=== PATIENT | male | born 1975 | race African-American/Black ===

== ENCOUNTER → 2018-05-30 | Outpatient (CLI) | payer OTHER ==
[~2018-05-30] MED LIST: CETI10TA22 PO; GABA600T7 PO; MULT1TAB52 PO; NAPR-683 PO
--- NOTE | 2018-05-31 01:56 | PAIN ---
DATE OF SERVICE: 05/30/2018 INITIAL CONSULTATION IN PAIN CLINIC CHIEF COMPLAINT: Low back and right lower extremity pain. HISTORY OF PRESENT ILLNESS: The patient is a 42-year-old male who presents with history of pain in the low back and right lower extremity for about 3 months with some significant difficulty with walking over the past 1 month. The patient reports pain in the low back and the right lower extremity, posterior gluteus, posterior thigh and then into the first and second toes with numbness on the right foot. The patient reports this came up about 3 months ago, not a result of any specific injury or action he is aware of, just came up slowly. The patient had pain and stiffness in the low back as well as the right leg and foot. The patient is taking gabapentin as well as naproxen, which does decrease the pain by about 40%. The patient reports he has had epidural injections in the past, physical therapy, chiropractic treatment, is doing exercise currently, but without significant reduction in the pain overall. The patient reports it awakens him from sleep at least twice a night, does not affect his bowel or bladder control, but does affect his ability to walk. He is walking with a slightly widened gait and is breaking his back, when he walks keeping his knees bent more than normal. The patient reports the pain is constant, sharp, shooting, radiating with numbness in the foot, burning in the right leg is described. The patient reports a disability rate from 0-10, 10 being the worst, is 9 with family home responsibilities, recreation and sexual behavior and 7 with social activity, occupational behavior, self-care and life support activities; all at 7/10. The patient did have MRI scan of the lumbar spine dated 05/25/2018 showing degenerative disk changes of L2, previous microdiskectomy at L5-S1, slightly asymmetric soft tissue prominence seen in the right paramedian location at L5-S1, he has actually very small broad-based disk extrusion, post-surgical changes accounting for some and not excluded, mild inferior neural foraminal narrowing seen greater on the right. The L4-L5 shows mild facet and ligamentum flavum hypertrophy with minimal bulging asymmetric to the left. The patient's past medical history is significant for only previous right hip surgery and low back surgery in 2016 with lumbar L5-S1 diskectomy. Otherwise, the patient has been in good health. CURRENT MEDICATIONS: Include naproxen, gabapentin, multivitamins and Zyrtec. ALLERGIES: The patient is allergic to FISH. No medicines he is alert and aware of. FAMILY HISTORY: Significant for no major medical problems or conditions he is aware of. SOCIAL HISTORY: The patient does not smoke, drinks alcohol about 2 drinks once or twice a week on average. Does not use any illegal, illicit or recreational drugs. He is single. Lives locally in [place], [place] and is active . REVIEW OF SYSTEMS: The patient's review of systems is positive for those items mentioned in history of present illness. All systems reviewed and otherwise negative. It is complete, full and well documented on the patient's chart. PHYSICAL EXAMINATION: VITAL SIGNS: Today, the patient's blood pressure is 139/82, pulse is 72, respirations 18, temperature 98.1 degrees Fahrenheit, height is 6 feet 2 inches, weight 243 pounds. GENERAL: The patient is awake, alert, oriented, appropriate, very pleasant demeanor. HEENT: Head shows normocephalic, atraumatic. Extraocular movements are intact and symmetrical. Oral cavity: Mucous membranes moist and pink. Dentition is intact. NECK: Shows anterior throat supple without palpable lymphadenopathy noted. Swallow reflex symmetrical. CHEST: Shows normal with inspection. Breath sounds are clear to auscultation bilaterally. HEART: Shows S1 and S2 clear. No murmurs auscultated. ABDOMEN: Soft, nontender and nondistended. No palpable organomegaly is noted. No rebound or guarding demonstrated. BACK: Shows spine grossly in the midline. Normal appearing thoracic kyphosis and lumbar lordotic curvature as well. Small well-healed surgical scars noted in the lumbar distribution in the midline. Lumbar paraspinous muscle shows symmetrical on inspection, no atrophy or hypertrophy, no asymmetry. With palpation, there is some moderate tenderness in the middle and lower distribution of paraspinous muscles bilaterally, but only diffusely without radiation. No trigger points, no asymmetry, no tenderness over the sacrum or sacroiliac regions over the spinous processes. The patient has good rotational motion of lumbar spine, both laterally as well as extension and flexion greater than 10 degrees right and left in extension as well as 45 degrees forward flexion without significant pain reported. EXTREMITIES: Lower extremities show deep tendon reflexes at 2+, in the patellar 1+ and tendo-calcaneus tendons are equal. Motor exam is strong with approximately 4 on a scale of 5 on the right with dorsiflexion and extension, 5/5 on the left, quadriceps and hamstring flexion 5/5 and equal bilaterally. Peripheral pulses are 1+ posterior tibial and dorsalis pedis pulses. No peripheral edema is noted. Lower extremities are warm and dry to touch, equal in color and appearance. Straight leg raise noted to be positive on the right at about 40 degrees, decreased with knee flexion, left side is negative. Gaenslen's and Talha's maneuvers are negative bilaterally. The patient is able to stand, stand on his toes without difficulty or loss of balance and has a slight widened gait though and does favor his low back with walking. He keeps his knees bent with his back is more straight when he is ambulating. SKIN: Shows warm and dry, good turgor. No edema. No sores, rashes or bruising throughout. IMPRESSION: 1. This is a 42-year-old male with a history of low back surgery in 2016, now pain returning in the low back, right lower extremity in radicular fashion for about 3 months without any recent injury or accident. 2. MRI scan of lumbar spine as noted. PLAN: Options were discussed with the patient including conservative medical management, physical therapy, interventional techniques. He would like to pursue interventional techniques and he is doing some therapy, stretching and strengthening exercises on his own, heat and massage therapy as well. We discussed a lumbar epidural steroid injection using description as well as anatomical models to describe the procedure. The patient will wait for preauthorization with insurance provider. Once this is obtained, we will have him return for lumbar epidural steroid injection at that time with L5-S1 radicular pain on the right side. The patient in the meantime will continue with stretching and strengthening exercises and to follow up as scheduled. ROSANNE DAVIES MD DR: RAGHU/leslee JOB#: [id number] / [id number]
== END | disposition home or self-care (01) ==
LOC: PNCL 10:52
PROVIDERS: ATTEND Anesthesiology
DX: M54.5 Low back pain (principal); M79.605 Pain in left leg; R20.0 Anesthesia of skin
CPT/HCPCS: G0463

== ENCOUNTER → 2018-06-14 | Outpatient (CLI) | payer OTHER ==
[~2018-06-14] MED LIST changes: +IOHEXOL 180 MG/ML 10 ML VIAL. ONE; +methylPREDNISolone ACETATE 40 MG/ML VIAL. ONE; +methylPREDNISolone ACETATE 80 MG/ML VIAL. ONE
--- NOTE | 2018-06-15 03:00 | PAIN ---
DATE OF SERVICE: 06/14/2018 PROGRESS NOTE FOR PAIN CLINIC: DIAGNOSES: Lumbar radiculopathy with lumbar degenerative disk disease and lumbar post-laminectomy syndrome. HISTORY OF PRESENT ILLNESS: The patient is a 42-year-old male who returns for followup status post initial evaluation and preauthorization for lumbar epidural steroid injection. The patient would like to proceed with that today. We discussed options and he would like to proceed with a lumbar epidural steroid injection. The patient reports still significant pain in the low back, right lower extremity, posterior gluteus, posterior thigh and posterior calf. The patient reports tingling, burning, aching, shooting, becoming more constant, worse with walking, standing, better with sitting or lying down, but still waking him from sleep about once at night. The patient reports no new motor or sensory deficits, no new bowel or bladder incontinence. Reports it is an 8 on a scale of 10 at its worst, 7 on average, 5 at its least and is a 7 today. The patient reports no new motor or sensory deficits, no bowel or bladder incontinence or other complaints. PHYSICAL EXAMINATION: VITAL SIGNS: The patient's blood pressure 136/90, pulse 71, respirations 20, temperature is 98.2 degrees Fahrenheit, height 6 feet 2 inches, weight is 243 pounds. GENERAL: The patient is awake, alert, oriented, appropriate, very pleasant demeanor. HEENT: Shows normocephalic, atraumatic. Extraocular movements intact and symmetrical. Oral cavity: Mucous membranes moist and pink. Dentition is intact. NECK: Shows anterior throat supple without palpable lymphadenopathy noted. Swallow reflex symmetrical. CHEST: Shows normal on inspection. Breath sounds clear to auscultation bilaterally. HEART: Shows S1, S2 clear. No murmurs auscultated. ABDOMEN: Soft, nontender, nondistended. No palpable organomegaly is noted. No rebound or guarding demonstrated. BACK: Shows spine grossly in the midline. Normal appearing thoracic kyphosis and lumbar lordotic curvature, well-healed surgical scars noted. Lumbar paraspinous muscle shows symmetrical on inspection, on palpation shows some moderate tenderness diffusely, but only diffusely without radiation. The patient shows good rotational motion both laterally as well as extension and flexion without difficulty. EXTREMITIES: The patient's lower extremities show deep tendon reflexes at 2+ in the patellar, 1+ tendo calcaneus tendons. Motor exam is approximately a 4 on a scale of 5 on the right with dorsiflexion and extension, 5/5 on the left. Peripheral pulses are 1+ posterior tibial. No peripheral edema is noted bilaterally. Options were discussed with the patient. The patient's old chart was reviewed as was his current medication regimen updated. Current review of systems updated today as well. We will proceed with a lumbar epidural steroid injection today with fluoroscopic guidance. Risks were again discussed including, but not limited to bleeding, infection, possibility of epidural hematoma, subsequent neurologic compromise, dural puncture, headaches, spinal cord and/or nerve damage, side effects of steroid medication and poor results regarding pain control. The patient understands and wished to proceed. The patient is to return to clinic in approximately 2 weeks for followup. He was counseled as to return appointment, activity level and side effects to be aware of. DIAGNOSES: Lumbar radiculopathy with lumbar degenerative disk disease and lumbar post-laminectomy syndrome. PROCEDURE: Lumbar epidural steroid injection, translaminar approach L5-S1 levels using C-arm fluoroscopic guidance under sterile prep and drape using local anesthetic. MEDICATION INJECTED: A total of 120 mg Depo-Medrol plus 10 mL of preservative-free normal saline and 2 mL of Isovue for contrast. CONDITION AT DISCHARGE: Stable. The patient tolerated procedure well, had no complications. ROSANNE DAVIES MD DR: RAGHU/leslee JOB#: [id number] / [id number]
== END | disposition home or self-care (01) ==
LOC: PNCL 07:51
PROVIDERS: ATTEND Anesthesiology
DX: M51.16 Intervertebral disc disorders with radiculopathy, lumbar region (principal); M96.1 Postlaminectomy syndrome, not elsewhere classified; Z91.013 Allergy to seafood
CPT/HCPCS: 62323; J1030; J1040; Q9965

== ENCOUNTER → 2018-06-27 | Outpatient (CLI) | payer OTHER ==
--- NOTE | 2018-06-27 19:25 | PAIN ---
DATE OF SERVICE: 06/27/2018 DIAGNOSIS: Lumbar radiculopathy with lumbar degenerative disk disease and post-lumbar laminectomy syndrome. HISTORY OF PRESENT ILLNESS: The patient is a 42-year-old male who returns for a followup status post lumbar epidural steroid injection x 1. The patient reports approximately 50% improvement in his low back pain, it has completely gone, still pain in the right leg in the posterior gluteus, posterior thigh, calf and foot, but the pain is much better in his back. The patient reports he has been increasing his activities with greater ease and comfort, has been walking greater distances, doing home and work activities, also traveling greater ease. The patient reports still a tingling pain in the right leg as well as a stabbing pain that becomes constant at times with standing for too long about 30-40 minutes. The patient reports his pain as a 4 on a scale of 10 at its least, average and at its worst over the past week and is a 4 today. The patient reports no new motor or sensory deficits, no new bowel or bladder incontinence or other complaints. He is quite pleased with his progress thus far. PHYSICAL EXAMINATION: VITAL SIGNS: The patient's blood pressure is 139/96, pulse 78, respirations are 18, temperature is 98.1 degrees Fahrenheit. Height is 6 feet 2 inches, weight is 243 pounds. GENERAL: The patient is awake, alert, oriented, appropriate, very pleasant demeanor. HEENT: Shows normocephalic, atraumatic. Extraocular movements intact and symmetrical. Oral cavity shows mucous membranes moist and pink. Dentition is intact. NECK: Shows anterior throat supple without palpable lymphadenopathy noted. Swallow reflex symmetrical. CHEST: Shows normal with inspection. Breath sounds are clear to auscultation bilaterally. HEART: Shows S1, S2 clear. No murmurs auscultated. ABDOMEN: Soft, nontender, nondistended. No palpable organomegaly is noted. No rebound or guarding demonstrated. MUSCULOSKELETAL: Back shows spine grossly in the midline. Normal appearing thoracic kyphosis and lumbar lordotic curvature. Lumbar paraspinous musculature is symmetrical on inspection with a well healed surgical scar in the midline. Paraspinous musculature shows moderately tender with palpation bilaterally, but only diffusely in the middle and lower distribution of the paraspinous muscles without radiation. The patient has good rotational motion of the lumbar spine, both laterally as well as extension and flexion without difficulty. The patient shows lower extremities deep tendon reflexes 2+ in the patellar, 1+ tendo-calcaneus tendons. Motor exam is approximately 4 on a scale of 5 on the right with dorsiflexion and extension, 5/5 on the left. Peripheral pulses are 1+ posterior tibial. No peripheral edema is noted bilaterally. PLAN: Options were discussed with the patient. The patient's old chart was reviewed as his current medication regimen and updated. Current review of systems updated today as well. We will proceed with a second lumbar epidural steroid injection today with fluoroscopic guidance. Risks were again discussed including, but not limited to bleeding, infection, possibility of epidural hematoma, subsequent neurologic compromise, dural puncture, headaches, spinal cord and/or nerve damage, side effects of steroid medication and poor results regarding pain control. The patient understands and wished to proceed. The patient is to return to clinic in approximately 2 weeks for a followup, was counseled on return appointment, activity level, and side effects to be aware of. DIAGNOSIS: Lumbar radiculopathy with lumbar degenerative disk disease, post-lumbar laminectomy syndrome. PROCEDURE: Lumbar epidural steroid injection, translaminar approach at L5-S1 level using C-arm fluoroscopic guidance under sterile prep and drape using local anesthetic. MEDICATION INJECTED: A total of 120 mg Depo-Medrol plus 10 mL of preservative-free normal saline and 2 mL of Isovue for contrast. CONDITION AT DISCHARGE: Stable. The patient tolerated procedure well, had no complications. ROSANNE DAVIES MD DR: RAGHU/leslee JOB#: [id number] / [id number]
== END | disposition home or self-care (01) ==
LOC: PNCL 07:55
PROVIDERS: ATTEND Anesthesiology
DX: M51.16 Intervertebral disc disorders with radiculopathy, lumbar region (principal); M96.1 Postlaminectomy syndrome, not elsewhere classified; Z91.013 Allergy to seafood
CPT/HCPCS: 62323; J1030; J1040; Q9965

== ENCOUNTER → 2018-10-11 | Outpatient (CLI) | payer OTHER ==
[~2018-10-11] MED LIST changes: -IOHEXOL 180 MG/ML 10 ML VIAL. ONE; +TRAM50TA PO; -methylPREDNISolone ACETATE 40 MG/ML VIAL. ONE; -methylPREDNISolone ACETATE 80 MG/ML VIAL. ONE
--- NOTE | 2018-10-12 00:40 | PAIN ---
DATE OF SERVICE: 10/11/2018 PROGRESS NOTE FOR PAIN CLINIC DIAGNOSES: Lumbar radiculopathy with lumbar degenerative disk disease and lumbar post-laminectomy syndrome. HISTORY OF PRESENT ILLNESS: The patient is a 42-year-old male who returns for followup status post lumbar epidural steroid injection x 2. The patient reports about 90% improvement and the last injection was 06/27/2018 until about 3 weeks ago, pain began to return in the low back, right lower extremity, posterior gluteus, posterior thigh, posterior calf and into the ankle with pain in the medial foot and numbness in the foot on the right side as well. The patient reports it is aching, sharp, shooting, stabbing pain, tingling and burning in the leg, radiating in the leg and constant in the back. The patient reports it is 8 on a scale of 10 at its worst, 7 on average in the past week and at least in the 5 today. The patient reports no new motor or sensory deficits. Initially, he was doing everything much better with greater ease and comfort, walking greater distances, doing work activities, household activities, traveling with greater ease and comfort as well. The patient reports he is still sleeping well at night, does not bother him when he is lying down, but mainly when he is on his feet, walking or standing. The patient reports no new motor or sensory deficits, no new bowel or bladder incontinence. PHYSICAL EXAMINATION: VITAL SIGNS: The patient's blood pressure is 138/81, pulse 71, respirations 18, temperature 97.9 degrees Fahrenheit, height 6 feet 2 inches and weight is 240 pounds. GENERAL: The patient is awake, alert, oriented, appropriate, very pleasant demeanor. HEENT: Shows normocephalic, atraumatic. Extraocular movements are intact, symmetrical. Oral cavity: Mucous membranes moist and pink. Dentition is intact. NECK: Shows anterior throat supple without palpable lymphadenopathy noted. Swallow reflex symmetrical. CHEST: Shows normal on inspection. Breath sounds clear to auscultation bilaterally. HEART: S1, S2 clear. No murmurs auscultated. ABDOMEN: Soft, nontender, nondistended. No palpable organomegaly is noted. No rebound or guarding demonstrated. BACK: Shows spine grossly in the midline. Normal appearing thoracic kyphosis and lumbar lordotic curvature. Lumbar paraspinous muscle shows symmetrical on inspection and palpation shows moderate tenderness diffusely bilaterally going diffusely without radiation. EXTREMITIES: The patient's lower extremities show deep tendon reflexes at 2+ in the patellar, 1+ tendo-calcaneus tendons. Motor exam is approximately 4 on a scale of 5 with right dorsiflexion, extension, 5/5 on the left. Peripheral pulses are 1+ posterior tibial. No peripheral edema is noted bilaterally. Options were discussed with the patient. The patient's old chart was reviewed as his current medication regimen updated. Current review of systems updated today as well. We will proceed with a preauthorization for third in a series of lumbar epidural steroid injection. This patient has had significant improvement about 90% improvement for 3 months of last injection with radicular pain returning in L5-S1 dermatomal distribution on the right leg. The patient will return for L5-S1 translaminar epidural steroid injection once approval obtained. The patient will try Medrol Dosepak in the meantime. The patient was given instruction as well as side effects to be aware of with the medication and will follow up in approximately one week to plan on epidural injection at that time. ROSANNE DAVIES MD DR: RAGHU/leslee JOB#: [id number] / [id number]
== END | disposition home or self-care (01) ==
LOC: PNCL 10:51
PROVIDERS: ATTEND Anesthesiology
DX: M51.16 Intervertebral disc disorders with radiculopathy, lumbar region (principal); M96.1 Postlaminectomy syndrome, not elsewhere classified
CPT/HCPCS: G0463

== ENCOUNTER → 2018-10-30 | Outpatient (CLI) | payer OTHER ==
[~2018-10-30] MED LIST changes: +IOHEXOL 180 MG/ML 10 ML VIAL. ONE; +methylPREDNISolone ACETATE 40 MG/ML VIAL. ONE; +methylPREDNISolone ACETATE 80 MG/ML VIAL. ONE
--- NOTE | 2018-10-31 04:13 | PAIN ---
DATE OF SERVICE: 10/30/2018 PROGRESS NOTE FOR PAIN CLINIC DIAGNOSES: Lumbar radiculopathy with lumbar degenerative disk disease and post-lumbar laminectomy syndrome. HISTORY OF PRESENT ILLNESS: The patient is a 43-year-old male who returns for followup status post lumbar epidural steroid injections x 2. The patient did very well after the last injection, about 90% improvement and the pain began to return. His first one was in June, patient had the second one on 06/27 and did very well for several months. The patient has been preauthorized for additional injection today and would like to proceed, still pain in the low back, right lower extremity, posterior gluteus, posterior thigh, posterior calf, as it was previously, tingling and burning in quality, rated as sharp and constant, rates as 7 on a scale of 10 at its worst over the past week, 6 on average and a 5 at its least and is a 5 today. The patient reports no new motor or sensory deficits, no new bowel or bladder incontinence, still better with sitting or lying down, does not awaken him from sleep at night, worse with standing, walking and changing positions. PHYSICAL EXAMINATION: VITAL SIGNS: The patient's blood pressure 121/81, pulse 82, respirations 18, temperature is 98.0 degrees Fahrenheit. Height is 6 feet 2 inches, weighs 241 pounds. GENERAL: The patient is awake, alert, oriented, appropriate, very pleasant demeanor. HEENT: Shows normocephalic, atraumatic. Extraocular movements are intact and symmetrical. Oral cavity: Mucous membranes moist and pink. Dentition is intact. NECK: Shows anterior throat supple without palpable lymphadenopathy noted. Swallow reflex symmetrical. CHEST: Shows normal on inspection. Breath sounds clear to auscultation bilaterally. HEART: Shows S1, S2 clear. No murmurs auscultated. ABDOMEN: Soft, nontender, nondistended. No palpable organomegaly is noted. No rebound or guarding demonstrated. BACK: Shows spine grossly in the midline, slight flattening of lumbar lordotic curvature with well-healed surgical scar noted. Lumbar paraspinous muscle shows symmetrical on inspection, on palpation shows some moderate tenderness diffusely bilaterally, but only diffusely without radiation. The patient has good rotational motion of lumbar spine, both laterally as well as extension and flexion without difficulty. EXTREMITIES: Lower extremities show deep tendon reflexes at 2+ in the patellar, 1+ tendo-calcaneus tendons. Motor exam is approximately 4 on a scale of 5 on the right and 5/5 on the left with dorsiflexion, extension, quadriceps and hamstring flexion. Peripheral pulses are 1+ posterior tibia. No peripheral edema is noted bilaterally. Options were discussed with the patient. The patient's old chart was reviewed as his current medication regimen updated. Current review of systems updated today as well. We will proceed with a lumbar epidural steroid injection today, it is the third in the series. Risks were again discussed including, but not limited to bleeding, infection, possibility of epidural hematoma, subsequent neurological compromise, dural puncture, headaches, spinal cord and/or nerve damage, side effects of steroid medication and poor results regarding pain control. The patient understands and wished to proceed. The patient will return to clinic in approximately 2 weeks for followup. He was counseled on return appointment, activity level and side effects to be aware of. DIAGNOSIS: Lumbar radiculopathy with lumbar degenerative disk disease and lumbar post-laminectomy syndrome. PROCEDURE: Lumbar epidural steroid injection, translaminar approach at the L5-S1 level using C-arm fluoroscopic guidance under sterile prep and drape using local anesthetic. MEDICATION INJECTED: The patient received a total of 120 mg Depo-Medrol plus 10 mL of preservative-free normal saline and 2 mL of contrast. CONDITION AT DISCHARGE: Stable. The patient tolerated the procedure well, had no complications. ROSANNE DAVIES MD DR: RAGHU/leslee JOB#: [id number] / [id number]
== END ==
LOC: PNCL 14:13
PROVIDERS: ATTEND Anesthesiology
DX: M51.16 Intervertebral disc disorders with radiculopathy, lumbar region (principal); M96.1 Postlaminectomy syndrome, not elsewhere classified
CPT/HCPCS: 62323; J1030; J1040; Q9965

== ENCOUNTER → 2019-01-31 | Outpatient (CLI) | payer OTHER ==
[~2019-01-31] MED LIST changes: -IOHEXOL 180 MG/ML 10 ML VIAL. ONE; -methylPREDNISolone ACETATE 40 MG/ML VIAL. ONE; -methylPREDNISolone ACETATE 80 MG/ML VIAL. ONE
--- NOTE | 2019-01-31 09:07 | PAIN ---
DATE OF SERVICE: 01/31/2019 PROGRESS NOTE FOR PAIN CLINIC DIAGNOSIS: Lumbar radiculopathy with lumbar degenerative disk disease and post-lumbar laminectomy syndrome. HISTORY OF PRESENT ILLNESS: The patient is a 43-year-old male who returns for followup status post lumbar epidural steroid injections x 3, most recently on 10/30/2018. The patient did very well with near 100% improvement for about the first 2 months. The patient reports that after that the pain began, it returned very gradually and slowly in the low back and right lower extremity, mostly in the posterior gluteus, posterior thigh, posterior calf, some occasionally on the left side, but mostly on the right, radiating. The patient reports it is a 7 on a scale of 10 at its worst over the past week, 6 on average, 5 at its least and is a 5 today, better with sitting or lying down and has been beginning to awaken him from sleep. Once again patient describes the pain is burning and stabbing in the back, sharp and shooting, tight in the leg on the right side and becoming more constant. The patient reports that initially he was doing more walking with greater ease and comfort, continues to work out and exercise and also has been dieting and losing some weight. The patient reports he was increasing his activity at home as well as at work and traveling with greater ease and comfort and is very pleased with his progress, although the pain is again returning. PHYSICAL EXAMINATION: VITAL SIGNS: The patient's blood pressure 130/85, pulse 70, respirations 16, temperature 97.7 degrees Fahrenheit, weight is 232 pounds. GENERAL: The patient is awake, alert, oriented, appropriate, very pleasant demeanor. HEENT: Shows normocephalic, atraumatic. Extraocular movements are intact and symmetrical. Oral cavity: Mucous membranes moist and pink. Dentition is intact. NECK: Shows anterior throat is supple without palpable lymphadenopathy noted. Swallow reflex is symmetrical. CHEST: Shows normal on inspection. Breath sounds are clear bilaterally. HEART: Shows S1, S2 clear. No murmurs auscultated. ABDOMEN: Soft, nontender and nondisteded. BACK: Shows spine grossly in the midline. Normal appearing thoracic kyphosis and some minor flattening of lumbar lordotic curvature. Lumbar paraspinous muscle shows symmetrical on inspection, with palpation shows some moderate tenderness diffusely bilaterally going diffusely without radiation. The patient has good rotational motion of lumbar spine, both laterally as well extension and flexion without difficulty. EXTREMITIES: The patient's lower extremities show deep tendon reflexes at 2+ in the patellar, 1+ in the tendo-calcaneus tendons. Motor exam is strong with approximately 4 on a scale of 5 on the right with dorsiflexion, extension and 5/5 on the left. Peripheral pulses are 1+ posterior tibia. No peripheral edema is noted bilaterally. Options were discussed with the patient. The patient's old chart was reviewed as well as his current medication regimen updated. Current review of systems updated today as well. We will proceed with a preauthorization for a lumbar epidural steroid injection. He has done very well with these with clinical return of radiculopathy in the L5-S1 dermatomal distribution on the right. The patient will try Medrol Dosepak. In the meantime, was given instruction as well as side effects to be aware of with medication. We will follow up in approximately one week. We will plan on lumbar epidural steroid injection, translaminar approach L5-S1 level at that time. ROSANNE DAVIES MD DR: RAGHU/leslee JOB#: [id number] / [id number]
== END | disposition home or self-care (01) ==
LOC: PNCL 08:25
PROVIDERS: ATTEND Anesthesiology
DX: M51.16 Intervertebral disc disorders with radiculopathy, lumbar region (principal); M96.1 Postlaminectomy syndrome, not elsewhere classified
CPT/HCPCS: G0463

== ENCOUNTER → 2019-02-14 | Outpatient (CLI) | payer OTHER ==
[~2019-02-14] MED LIST changes: +IOHEXOL 180 MG/ML 10 ML VIAL. ONE; +methylPREDNISolone ACETATE 40 MG/ML VIAL. ONE; +methylPREDNISolone ACETATE 80 MG/ML VIAL. ONE
--- NOTE | 2019-02-14 13:07 | PAIN ---
DATE OF SERVICE: 02/14/2019 PROGRESS NOTE FOR PAIN CLINIC DIAGNOSES: Lumbar radiculopathy with lumbar degenerative disk disease and lumbar post-laminectomy syndrome. HISTORY OF PRESENT ILLNESS: The patient is a 43-year-old male who returns for followup status post lumbar epidural steroid injections x 3. Most recently in 10/30/2018, the patient did very well with near 100% improvement for about 3 months. The patient reports the pain is returning now in the low back and right lower extremity, posterior gluteus, posterior thigh, posterior calf and foot on the right side, worse with walking, standing, changing positions, better with sitting or lying down. The patient reports it awakens him from sleep about once every 6 hours or so at night, but not every night. The patient reports he has been increasing his activity with greater ease and comfort after his last injections, but the pain is returning now. The patient reports it is an 8 on a scale of 10 at its worst over the past week, 7 on average, 6 at its least and is a 6 today. The patient reports it is sharp, tight, shooting, stabbing in the back, tingling and burning in the leg with radiating pain that can be constant in the right leg as well. The patient reports no new motor or sensory deficits, no new bowel or bladder incontinence. PHYSICAL EXAMINATION: VITAL SIGNS: The patient's blood pressure 120/80, pulse 90, respirations 16, temperature 98.0 degrees Fahrenheit, height is 6 feet 2 inches, weight is 228 pounds. GENERAL: The patient is awake, alert, oriented, appropriate, very pleasant demeanor. HEENT: Exam shows normocephalic, atraumatic. Extraocular movements are intact and symmetrical. Oral cavity: Mucous membranes moist and pink. Dentition is intact. NECK: Shows anterior throat supple without palpable lymphadenopathy noted. Swallow reflex symmetrical. CHEST: Shows normal on inspection. Breath sounds clear to auscultation bilaterally. HEART: Shows S1, S2 clear. No murmurs auscultated. ABDOMEN: Soft, nontender, nondistended. No palpable organomegaly is noted. BACK: Shows spine grossly in the midline. Normal appearing thoracic kyphosis and some minor flattening of lumbar lordotic curvature with well-healed surgical scarring noted. Lumbar paraspinous muscle shows symmetrical on inspection, with palpation shows some moderate tenderness diffusely bilaterally, but only diffusely without significant radiation. EXTREMITIES: The patient's lower extremities show deep tendon reflexes 2+ in the patellar, 1+ tendo-calcaneus tendons. Motor exam is 4 on a scale of 5 with right dorsiflexion, extension, 5/5 on the left, but intact and strong. Peripheral pulses are 1+. No peripheral edema is noted bilaterally. Options were discussed with the patient. The patient's old chart was reviewed as his current medication regimen updated. Current review of systems updated today as well. We will proceed with a first in this series of lumbar epidural steroid injection today with fluoroscopic guidance. Risks were again discussed including, but not limited to bleeding, infection, possibility of epidural hematoma, subsequent neurological compromise, dural puncture, headaches, spinal cord and/or nerve damage, side effects of steroid medication and poor results regarding pain control. The patient understands and wished to proceed. The patient will return to the clinic in approximately 2 weeks for followup. He was counseled as to return appointment, activity level and side effects to be aware of. DIAGNOSES: Lumbar radiculopathy with lumbar degenerative disk disease and lumbar post-laminectomy syndrome. PROCEDURE: Lumbar epidural steroid injection, translaminar approach L5-S1 level using C-arm fluoroscopic guidance under sterile prep and drape using local anesthetic. MEDICATION INJECTED: A total of 120 mg Depo-Medrol plus 10 mL of preservative-free normal saline and 2 mL of contrast. CONDITION AT DISCHARGE: Stable. The patient tolerated the procedure well, had no complications. ROSANNE DAVIES MD DR: RAGHU/leslee JOB#: [id number] / [id number]
== END ==
LOC: PNCL 08:04
PROVIDERS: ATTEND Anesthesiology
DX: M51.16 Intervertebral disc disorders with radiculopathy, lumbar region (principal); M96.1 Postlaminectomy syndrome, not elsewhere classified
CPT/HCPCS: 62323; J1030; J1040; Q9965

== ENCOUNTER → 2019-08-15 | Outpatient (CLI) | payer OTHER ==
[~2019-08-15] MED LIST changes: -CETI10TA22 PO; +CETI10TA24 PO; -IOHEXOL 180 MG/ML 10 ML VIAL. ONE; +MULT-445 PO; -MULT1TAB52 PO; -methylPREDNISolone ACETATE 40 MG/ML VIAL. ONE; -methylPREDNISolone ACETATE 80 MG/ML VIAL. ONE
--- NOTE | 2019-08-15 09:19 | PAIN ---
DATE OF SERVICE: 08/15/2019 PROGRESS NOTE FOR PAIN CLINIC DIAGNOSES: Lumbar radiculopathy with lumbar degenerative disk disease and post-lumbar laminectomy syndrome. HISTORY OF PRESENT ILLNESS: The patient is a 43-year-old male, who returns for followup status post lumbar epidural steroid injections, most recently seen in 02/14/2019. The patient did very well with about 90% improvement with the injection. The patient reports that it has lasted for several months until about 4-5 weeks ago, the pain began to return in the low back and right lower extremity, posterior gluteus, posterior thigh, posterior calf, radiating. The patient reports now it is a tingling sensation in the right leg, but no weakness or loss of motor function, some fatigability on the right leg only. The patient reports it is sharp in the back, tight, shooting in the right leg, stabbing in the back as well as becoming more constant with activity. The patient reports initially he was doing much better with distance walking, doing work activities, household activities, sitting for longer periods, sleeping better at night, is now beginning to awaken him from sleep about once or twice a night. The patient reports it is an 8 on a scale of 10 at its worst in the past week while it is a 7 on an average, 6 at its least and is a 6 today. The patient reports no new changes, no bowel or bladder incontinence or other complaints. PHYSICAL EXAMINATION: VITAL SIGNS: The patient's blood pressure is 135/101, pulse 83, respirations are 20, temperature 98.1 degrees Fahrenheit, height is 6 feet 2 inches, weight is 237 pounds. GENERAL: The patient is awake, alert, oriented, appropriate, very pleasant demeanor. HEENT: Shows normocephalic, atraumatic. Extraocular movements are intact and symmetrical. Oral cavity: Mucous membranes moist and pink; dentition is intact. NECK: Shows anterior throat supple without palpable lymphadenopathy noted. Swallow reflex symmetrical. CHEST: Shows normal on inspection. Breath sounds are clear bilaterally. HEART: Shows S1, S2 clear. No murmurs auscultated. ABDOMEN: Soft, nontender and nondistended. No palpable organomegaly is noted. No rebound or guarding demonstrated. BACK: Shows spine grossly in the midline. Normal-appearing thoracic kyphosis and some flattening of lumbar lordotic curvature with well-healed surgical scarring in the lumbar distribution. The patient's back shows good rotational motion, however, both laterally as well as extension and flexion without significant difficulty. The patient shows moderate tenderness with palpation only in the low lumbar distribution bilaterally diffusely without radiation or trigger points. No tenderness over the spinous processes, sacrum or sacroiliac regions. EXTREMITIES: Lower extremities show deep tendon reflexes are 2+ in the patellar and 1+ tendo-calcaneus tendons. Motor exam is approximately 4 on a scale of 5 on the right and 5/5 on the left with dorsiflexion, extension, quadriceps and hamstring flexion, but intact. Peripheral pulses are 1+ posterior tibial. No peripheral edema is noted bilaterally. Options were discussed with the patient. The patient's old chart was reviewed as his current medication regimen updated. Current review of systems updated today as well. We will proceed with a preauthorization for lumbar epidural steroid injection. He has done very well with these in the past with now returning radicular pain in the right side in L5-S1 dermatomal distribution. We will plan on translaminar approach lumbar epidural steroid injection, L5-S1 level. The patient will be given Medrol Dosepak in the meantime, was given instruction as well as side effects to be aware of with the medication and will follow up after approval. We will plan on lumbar epidural steroid injection at that time. ROSANNE DAVIES MD DR: RAGHU/leslee JOB#: [id number] / [id number]
== END ==
LOC: PNCL 08:34
PROVIDERS: ATTEND Anesthesiology
DX: M51.16 Intervertebral disc disorders with radiculopathy, lumbar region (principal); M96.1 Postlaminectomy syndrome, not elsewhere classified
CPT/HCPCS: G0463

== ENCOUNTER → 2019-08-29 | Outpatient (CLI) | payer OTHER ==
[~2019-08-29] MED LIST changes: +IOHEXOL 180 MG/ML 10 ML VIAL. ONE; +methylPREDNISolone ACETATE 40 MG/ML VIAL. ONE; +methylPREDNISolone ACETATE 80 MG/ML VIAL. ONE
--- NOTE | 2019-08-29 11:23 | PAIN ---
DATE OF SERVICE: 08/29/2019 PROGRESS NOTE FOR PAIN CLINIC DIAGNOSES: Lumbar radiculopathy with lumbar degenerative disk disease and lumbar post-laminectomy syndrome. HISTORY OF PRESENT ILLNESS: The patient is a 43-year-old male who returns for followup status post lumbar epidural steroid injection x 1, last seen on 02/2019. The patient did very well with about 80%-90% improvement. The patient had waited for preauthorization. He has obtained that now for second injection and would like to proceed, has still pain in the low back, bilateral lower extremities right greater than left, posterior gluteus, posterior thigh, posterior calf, some on the left side, but mostly on the right. The patient reports it is an 8 on a scale of 10 at its worse over the past week, 7 on average, 6 at its least and is a 7 today. The patient reports tingling and burning in the legs, stabbing and cramping in the back, some tight pain and sharp at times, also shooting in the legs, again worse on the right than the left, becoming more constant with activity. The patient reports it is worse with standing, walking, changing positions. Initially, he was doing much better with distance walking, doing work activities, household activities, sleeping better at night. The patient reports it does awaken him about every 6-7 hours currently. The patient reports no new motor or sensory deficits, no new bowel or bladder incontinence or other complaints. PHYSICAL EXAMINATION: VITAL SIGNS: The patient's blood pressure is 130/73, pulse 69, respirations 18, temperature 97.8 degrees Fahrenheit, height is 6 feet 2 inches, and weight is 237 pounds. GENERAL: The patient is awake, alert, oriented, appropriate, very pleasant demeanor. HEENT: Shows normocephalic, atraumatic. Extraocular movements are intact and symmetrical. Oral cavity: Mucous membranes moist and pink. Dentition is intact. NECK: Shows anterior throat supple without palpable lymphadenopathy noted. Swallow reflex symmetrical. CHEST: Shows normal on inspection. Breath sounds are clear to auscultation bilaterally. HEART: Shows S1, S2 clear. No murmurs auscultated. ABDOMEN: Soft, nontender, nondistended. No palpable organomegaly is noted. No rebound or guarding demonstrated. BACK: Shows spine grossly in the midline. Normal appearing thoracic kyphosis, some minor flattening of lumbar lordotic curvature. Well-healed surgical scar noted. Lumbar paraspinous muscle shows symmetrical on inspection, on palpation shows some moderate tenderness diffusely bilaterally going diffusely without significant radiation. The patient has good rotational motion of lumbar spine, both laterally as well as extension and flexion without significant difficulty. EXTREMITIES: The patient's lower extremities show deep tendon reflexes at 2+ in the patellar, 1+ tendo-calcaneus tendons. Motor exam is approximately 4 on a scale of 5 with right dorsiflexion, extension, 5/5 on the left. Peripheral pulses are 1+ bilaterally. No peripheral edema is noted. Options were discussed with the patient. The patient's old chart was reviewed as his current medication regimen updated. Current review of systems updated today as well. We will proceed with a second in the series of lumbar epidural steroid injection today with fluoroscopic guidance. Risks were again discussed including, but not limited to bleeding, infection, possibility of epidural hematoma, subsequent neurological compromise, dural puncture, headaches, spinal cord and/or nerve damage, side effects of steroid medication and poor results regarding pain control. The patient understands and wished to proceed. The patient will return to clinic in approximately 2 weeks for followup. He was counseled on return appointment, activity level and side effects to be aware of. DIAGNOSES: Lumbar radiculopathy with lumbar degenerative disk disease and lumbar post-laminectomy syndrome. PROCEDURE: Lumbar epidural steroid injection, translaminar approach at L5-S1 level using C-arm fluoroscopic guidance under sterile prep and drape using local anesthetic. MEDICATION INJECTED: A total of 120 mg Depo-Medrol plus 10 mL preservative-free normal saline and 2 mL of contrast. CONDITION AT DISCHARGE: Stable. The patient tolerated the procedure well, had no complications. ROSANNE DAVIES MD DR: RAGHU/leslee JOB#: [id number] / [id number]
== END ==
LOC: PNCL 08:58
PROVIDERS: ATTEND Anesthesiology
DX: M51.16 Intervertebral disc disorders with radiculopathy, lumbar region (principal); M96.1 Postlaminectomy syndrome, not elsewhere classified
CPT/HCPCS: 62323; J1030; J1040; Q9965

== ENCOUNTER → 2019-09-20 | Outpatient (CLI) | payer OTHER ==
[~2019-09-20] MED LIST changes: -IOHEXOL 180 MG/ML 10 ML VIAL. ONE; -methylPREDNISolone ACETATE 40 MG/ML VIAL. ONE; -methylPREDNISolone ACETATE 80 MG/ML VIAL. ONE
--- NOTE | 2019-09-20 14:38 | PAIN ---
DATE OF SERVICE: 09/20/2019 PROGRESS NOTE FOR PAIN CLINIC DIAGNOSES: Lumbar radiculopathy with lumbar degenerative disk disease and lumbar post-laminectomy syndrome. HISTORY OF PRESENT ILLNESS: The patient is a 43-year-old male, who returns for followup status post lumbar epidural steroid injection x 2, most recently 08/26/2019. The patient did very well with about 50% improvement overall in the low back and right lower extremity. The patient reports he has increased his activity with greater ease and comfort, walking greater distances, sleeping better, sitting for longer periods, doing household activities, work activities with much greater ease and comfort, traveling, driving a car with much greater ease as well. The patient reports he still has some pain in the low back and the right lower extremity, posterior gluteus, posterior thigh, rates it as a 7 on a scale of 10 at its worst over the past week, 5-6 on average and 4 at its least and is a 5 today. The patient reports it is tight and shooting at times, tingling and burning in the right leg, can be radiating, can be constant. No loss of motor function, no bowel or bladder incontinence or other complaints. PHYSICAL EXAMINATION: VITAL SIGNS: The patient's blood pressure 130/86, pulse 72, respirations 18, temperature is 98.2 degrees Fahrenheit, height is 6 feet 2 inches, weight is 229 pounds. GENERAL: The patient is awake, alert, oriented, appropriate, very pleasant demeanor. HEENT: Shows normocephalic, atraumatic. Extraocular movements are intact and symmetrical. Oral cavity: Mucous membranes moist and pink. Dentition is intact. NECK: Shows anterior throat supple without palpable lymphadenopathy noted. Swallow reflex symmetrical. CHEST: Shows normal on inspection. Breath sounds are clear bilaterally. HEART: Shows S1, S2 clear. No murmurs auscultated. BACK: Shows spine grossly in the midline. Normal appearing thoracic kyphosis and some minor flattening of lumbar lordotic curvature with well-healed surgical scarring. Lumbar paraspinous muscle shows symmetrical on inspection, with palpation shows some very minor tenderness in the lumbar distribution diffusely bilaterally with good rotational motion both laterally as well as extension and flexion without increase in pain. EXTREMITIES: Lower extremities show deep tendon reflexes 2+ in the patellar, 1+ tendo-calcaneus tendons. Motor exam is approximately 4 on a scale of 5 on the right and 5/5 on the left with dorsiflexion, extension, quadriceps and hamstring flexion, however, is 5/5 and equal bilaterally. Peripheral pulses are 1+ posterior tibial. No peripheral edema is noted. Options were discussed with the patient. The patient's old chart was reviewed as his current medication regimen updated. Current review of systems updated today as well and we will proceed with holding any further injections at this time as he is doing much better. The patient would like to give some more time by increasing his activity with greater ease and comfort. We did discuss some stretching techniques and caution with over-exertion. The patient understands and will return to the clinic at this time on an as needed basis. ROSANNE DAVIES MD DR: RAGHU/leslee JOB#: [id number] / [id number]
== END | disposition home or self-care (01) ==
LOC: PNCL 09:34
PROVIDERS: ATTEND Anesthesiology
DX: Z09 Encounter for follow-up examination after completed treatment for conditions other than malignant neoplasm (principal); M51.16 Intervertebral disc disorders with radiculopathy, lumbar region; M96.1 Postlaminectomy syndrome, not elsewhere classified
CPT/HCPCS: G0463

== ENCOUNTER → 2019-10-26 | Outpatient (CLI) | payer OTHER ==
[~2019-10-26] MED LIST changes: +IOHEXOL 180 MG/ML 10 ML VIAL. ONE; +methylPREDNISolone ACETATE 40 MG/ML VIAL. ONE; +methylPREDNISolone ACETATE 80 MG/ML VIAL. ONE
--- NOTE | 2019-10-26 11:28 | PDOC ---
Progress Note - Pain Clinic Date of Service: DOS: DATE: 10/26/19 TIME: 11:25 Diagnosis: Dx: Lumbar radiculopathy with lumbar degenerative disc disease and lumbar postlaminectomy syndrome History or Present Illness: HPI: 44-year-old male returns follow-up status post lumbar epidural steroid traction x1 on August 29, 2019 patient points to 80% improvement with his low back and right lower extremity pain patient ports pain is returning however over the past 2 weeks or so increasing without any specific injury or accident but did worse with walking standing changing positions better with sitting or laying down however is been awakened from sleep occasionally patient reports is in the low back and right lower extremity posterior gluteus posterior thigh and some in the calf and the right foot with a numbness and tingling with burning described as constant and also sharp and dull alternating the low back with tightness shooting pain in the right leg. Patient which is pain is a 7 on a scale of 10 is worse over the past week 7 on average and a 7 at its least is a 7 today. Patient reports no new motor or sensory deficits no new bowel or bladder incontinence or other complaints. Physical Exam: VS: Blood pressure is 135/81 pulse 76 respirations are 18 temperature 90.2 F height is 6 foot 1 inch weight is 239 pound PE: PHYSICAL EXAMINATION: GENERAL: The patient is awake, alert, oriented, appropriate, very pleasant demeanor HEENT: Shows normocephalic, atraumatic. Extraocular movements are intact and symmetrical. Oral cavity: Mucous membranes moist and pink. NECK: Shows anterior throat supple without palpable lymphadenopathy noted. Swallow reflex symmetrical. CHEST: Shows normal on inspection. Breath sounds are clear bilaterally, no rales rhonchi or wheezes. HEART: Shows S1, S2 clear. No murmurs auscultated. ABDOMEN: Soft, nontender, nondistended. No palpable organomegaly is noted. No rebound or guarding demonstrated. BACK: Shows spine grossly in the midline. Normal-appearing cervical lordotic curvature. There is slightly increased thoracic kyphosis, some minor flattening of the lumbar lordotic curvature. Lumbar paraspinous muscles show symmetrical on inspection, on palpation shows some moderate tenderness diffusely throughout the upper, middle and lower distribution of the paraspinous muscles bilaterally but without specific trigger points, without radiation of pain. The patient has good rotational motion of the lumbar spine, both laterally as well as extension and flexion without significant difficulty. No tenderness over the spinous processes, sacrum or sacroiliac regions. EXTREMITIES: Lower extremities show deep tendon reflexes 2+ in the patellar and tendo calcaneus tendons. Motor exam is 4 on a scale of 5 with right dorsi flexion, extension, quadriceps and hamstring flexion and 5/5 on the left. Peripheral pulses are 1+ posterior tibial. No peripheral edema is noted bilaterally. Lower extremities are warm and dry to touch, equal in color and appearance. SKIN: Shows warm and dry, good turgor. No edema. No sores, rashes or bruising throughout. Procedure: Procedure: Options discussed with the patient. Patient's old chart was reviewed his his current medication regimen updated current review of systems updated today as well. We will proceed with a second in the series lumbar neurosurgery today with fluoroscopic guidance risk again discussed including but not limited to bleeding infection possibility of epidural hematoma subsequent neurological compromise dural puncture headache spinal cord and or nerve damage side effects steroid medication and/guarding pain control. Patient understands wishes to proceed. Patient return to the clinic in approximately 2 weeks for follow-up was counseled as return appointment activity level and side effects to be aware of Medication Injected: Med Injected: Procedure is lumbar epidural steroid injection under local anesthetic using sterile prep and drape at the L5-S1 level using C-arm fluoroscopic guidance in both AP and lateral views medications injected is 120 mg Depo-Medrol +[]mL preservative-free normal saline and 2 mL contrast- condition at discharge is stable patient tolerated procedure well had no complications. Condition at Discharge: Condition at Discharge: Condition at discharge is stable patient tolerated procedure well had no complications ROSANNE DAVIES MD Oct 26, 2019 11:28
== END | disposition home or self-care (01) ==
LOC: PNCL 10:09
PROVIDERS: ATTEND Anesthesiology
DX: M51.16 Intervertebral disc disorders with radiculopathy, lumbar region (principal); M96.1 Postlaminectomy syndrome, not elsewhere classified; Z79.899 Other long term (current) drug therapy; Z88.8 Allergy status to other drugs, medicaments and biological substances
CPT/HCPCS: 62323; J1030; J1040; Q9965

== ENCOUNTER → 2020-01-23 | Outpatient (CLI) | payer OTHER ==
[~2020-01-23] MED LIST changes: -CETI10TA24 PO; +CETI10TA74 PO; -IOHEXOL 180 MG/ML 10 ML VIAL. ONE; -methylPREDNISolone ACETATE 40 MG/ML VIAL. ONE; -methylPREDNISolone ACETATE 80 MG/ML VIAL. ONE
--- NOTE | 2020-01-23 15:06 | PDOC ---
Progress Note - Pain Clinic Date of Service: DOS: DATE: 01/23/20 TIME: 15:03 Diagnosis: Dx: Lumbar radiculopathy with lumbar degenerative disease and lumbar postlaminectomy syndrome History or Present Illness: HPI: 44-year-old male returns follow-up status post lumbar epidural straight injections x2. Patient reports about 70% improvement for 2 and half months after last injection which was October 26, 2019. Patient reports he did very well is very pleased with his progress has been increase his activity to greater ease and comfort initially was doing much better with distance walking doing household activities work activities traveling with greater ease and comfort sleeping better at night patient ports he is beginning awakening from sleep at night again but for the first 2 and half months it did not. Patient reports pain is a 7 on scale 10 is worse with the past week 6 on average 6 at its least is a 6 today. Patient scribes a tingling burning sharp tight and shooting in the low back and the right lower extremity posterior gluteus posterior thigh posterior calf worse with walking and standing some radiating pain as well across the back and into the leg and becomes more constant with time. The patient reports no new motor or sensory deficits no new bowel or bladder incont inence or other complaints. Physical Exam: VS: Blood pressure is 143/66 pulse 74 respirations 18 temperature 98.2 F height is 6 feet 2 inches weight is 227 pounds PE: PHYSICAL EXAMINATION: GENERAL: The patient is awake, alert, oriented, appropriate, very pleasant demeanor HEENT: Shows normocephalic, atraumatic. Extraocular movements are intact and symmetrical. Oral cavity: Mucous membranes moist and pink. NECK: Shows anterior throat supple without palpable lymphadenopathy noted. Swallow reflex symmetrical. CHEST: Shows normal on inspection. Breath sounds are clear bilaterally, no rales rhonchi wheezes auscultated. HEART: Shows S1, S2 clear. No murmurs auscultated. ABDOMEN: Soft, nontender, nondistended. No palpable organomegaly is noted. No rebound or guarding demonstrated. BACK: Shows spine grossly in the midline. Normal-appearing cervical lordotic curvature. There is slightly increased thoracic kyphosis, some minor flattening of the lumbar lordotic curvature. Lumbar paraspinous muscles show symmetrical on inspection, on palpation shows some moderate tenderness diffusely throughout the upper, middle and lower distribution of the paraspinous muscles without specific trigger points, without radiation of pain. The patient has good rotational motion of the lumbar spine, both laterally as well as extension and flexion without significant difficulty. No tenderness over the spinous processes, sacrum or sacroiliac regions. EXTREMITIES: Lower extremities show deep tendon reflexes 2+ in the patellar and tendo calcaneus tendons. Motor exam is 4 on a scale of 5 with right dorsi flexion, extension, quadriceps and hamstring flexion and 5/5 on the left. Peripheral pulses are 1+ posterior tibial. No peripheral edema is noted bilaterally. Lower extremities are warm and dry to touch, equal in color and appearance SKIN: Shows warm and dry, good turgor. No edema. No sores, rashes or bruising throughout. Procedure: Procedure: Options were discussed with the patient. Patient chart was reviewed his current medication regimen updated current review of systems updated today as well. We will preauthorize patient for lumbar epidural steroid injection as a third in the series season very well with these in the past. Patient still with clinical radiculopathy in the L5-S1 dermatomal distribution of the right lower extremity. In the meantime patient will try Medrol Dosepak patient was given instructions will side effects beware with the medication. Also continue home exercises stretching strengthening as tolerated. Patient will follow up after preauthorization we will proceed with lumbar epidural steroid injection at that time. Medication Injected: Med Injected: None Condition at Discharge: Condition at Discharge: Condition at discharge is stable. ROSANNE DAVIES MD Jan 23, 2020 15:06
== END | disposition home or self-care (01) ==
LOC: PNCL 14:33
PROVIDERS: ATTEND Anesthesiology
DX: M51.16 Intervertebral disc disorders with radiculopathy, lumbar region (principal); M96.1 Postlaminectomy syndrome, not elsewhere classified; Z79.899 Other long term (current) drug therapy; Z91.013 Allergy to seafood; Z88.8 Allergy status to other drugs, medicaments and biological substances
CPT/HCPCS: 99212; G0463

== ENCOUNTER → 2020-02-06 | Outpatient (CLI) | payer OTHER ==
[~2020-02-06] MED LIST changes: +IOHEXOL 180 MG/ML 10 ML VIAL. ONE; +methylPREDNISolone ACETATE 40 MG/ML VIAL. ONE; +methylPREDNISolone ACETATE 80 MG/ML VIAL. ONE
--- NOTE | 2020-02-06 13:51 | PDOC ---
Progress Note - Pain Clinic Date of Service: DOS: DATE: 02/06/20 TIME: 13:48 Diagnosis: Dx: Lumbar radiculopathy with lumbar degenerative disc disease and lumbar postlaminectomy syndrome History or Present Illness: HPI: 44-year-old male returns follow-up status post lumbar epidural steroid injection x2. Patient reports 70% improvement for the first 2 and half months or so pain returning in the low back and right lower extremity posterior gluteus posterior thigh into the foot with some numbness and tingling in the toes and the soles of foot. Patient was waiting for preauthorization was obtained that now would like to proceed with 1/3 injection. Patient rates his pain as a 7 on scale 10 is worse over the past week 5 on average for this least is a 5 today patient describes pain as tingling and burning in the low back and right leg sharp and shooting in the leg radiating and becoming more constant with walking and standing. Patient reports it generally does not awaken her from sleep but has over the past few weeks about every 8 hours. Patient reports initially was doing much better with walking and doing work activities household activities try with greater ease and comfort. Patient reports no new motor or sensory deficits no bowel or bladder incontinence or other complaints. Physical Exam: VS: Blood pressure is 118/77 pulse is 86 respirations 18 temperature 97.9 F height is 6 feet 2 inches weight is 230 pounds PE: PHYSICAL EXAMINATION: GENERAL: The patient is awake, alert, oriented, appropriate, very pleasant demeanor HEENT: Shows normocephalic, atraumatic. Extraocular movements are intact and symmetrical. NECK: Shows anterior throat supple without palpable lymphadenopathy noted. Swallow reflex symmetrical. CHEST: Shows normal on inspection. Breath sounds are clear bilaterally. HEART: Shows S1, S2 clear. No murmurs auscultated. ABDOMEN: Soft, nontender, nondistended, obese. No palpable organomegaly is noted. No rebound or guarding demonstrated. BACK: Shows spine grossly in the midline. Normal-appearing cervical lordotic curvature. There is slightly increased thoracic kyphosis, some minor flattening of the lumbar lordotic curvature. Lumbar paraspinous muscles show symmetrical on inspection, on palpation shows some moderate tenderness diffusely throughout the upper, middle and lower distribution of the paraspinous muscles without specific trigger points, and without radiation of pain. The patient has good rotational motion of the lumbar spine, both laterally as well as extension and flexion without significant difficulty. No tenderness over the spinous processes, sacrum or sacroiliac regions. EXTREMITIES: Lower extremities show deep tendon reflexes 2+ in the patellar and tendo calcaneus tendons. Motor exam is 4 on a scale of 5 with right dorsiflexion, extension, quadriceps and hamstring flexion and 5/5 on the left. Peripheral pulses are 1+ posterior tibial. No peripheral edema is noted bilaterally. Lower extremities are warm and dry to touch, equal in color and appearance. SKIN: Shows warm and dry, good turgor. No edema. No sores, rashes or bruising throughout. Procedure: Procedure: Options were discussed with the patient. Patient's old chart was reviewed his his current medication regimen updated current review of systems updated today as well. We will proceed with a third in the series lumbar epidural steroid injection today with fluoroscopic guidance. Risks were discussed including but not limited to: Bleeding, infection, possibility of epidural hematoma and subsequent neurological compromise, dural puncture, headaches, spinal cord and/or nerve damage, side effects of steroid medication, and poor results regarding pain control. Patient understands wished to proceed. Patient will return to the clinic in approximately 2 weeks for follow-up was counseled as to return appointment activity level and side effects to be aware of. Medication Injected: Med Injected: Procedure is lumbar epidural steroid injection under local anesthetic using sterile prep and drape at the L5-S1 level using C-arm fluoroscopic guidance in b oth AP and lateral views medications injected is 120 mg Depo-Medrol + 10 mL preservative-free normal saline and 2 mL contrast- condition at discharge is stable patient tolerated procedure well had no complications. Condition at Discharge: Condition at Discharge: Condition at discharge is stable, patient tolerated procedure well and had no complications. ROSANNE DAVIES MD Feb 06, 2020 13:51
== END | disposition home or self-care (01) ==
LOC: PNCL 13:21
PROVIDERS: ATTEND Anesthesiology
DX: M51.16 Intervertebral disc disorders with radiculopathy, lumbar region (principal); M96.1 Postlaminectomy syndrome, not elsewhere classified; Z79.899 Other long term (current) drug therapy
CPT/HCPCS: 62323; J1030; J1040; Q9965

== ENCOUNTER → 2020-07-17 | Outpatient (CLI) | payer OTHER ==
--- NOTE | 2020-07-17 09:37 | PDOC ---
Progress Note - Pain Clinic Date of Service: DOS: DATE: 07/17/20 TIME: 09:34 Diagnosis: Dx: Lumbar radiculopathy lumbar degenerative disease lumbar postlaminectomy syndrome History or Present Illness: HPI: 44-year-old male returns for follow-up status post lumbar epidural steroid injections x3 most recently 2020-02-06. Patient did very well with about 80 to 80% improvement for about 3 months following the injection the pain is returning now over the past few weeks in the low back and right lower extremity posterior gluteus posterior thigh and calf worse with walking standing but better overall patient reports has been increase his distance walking doing household activities work activities travel with greater ease and comfort walking with much less pain is sleeping better at night orthotic has begun to awaken her from sleep over the past few weeks. Patient reports his pain is a 7 on scale 10 is worse over the past week 6 times radiating constant low back tightness shooting tingling and burning in the leg and some stabbing pain in the back and the leg with weightbearing. Patient reports no new motor or sensory deficits no new bowel or bladder incontinence. Physical Exam: VS: Blood pressure is 126/77 pulse 81 respirations 18 temperature is 98.2 F weight is 230 pounds PE: PHYSICAL EXAMINATION: GENERAL: The patient is awake, alert, oriented, appropriate, very pleasant demeanor HEENT: Shows normocephalic, atraumatic. Extraocular movements are intact and symmetrical. Oral cavity: Mucous membranes moist and pink. Dentition is intact. NECK: Shows anterior throat supple without palpable lymphadenopathy noted. Swallow reflex symmetrical. CHEST: Shows normal on inspection. Breath sounds are clear bilaterally, no rales or rhonchi. HEART: Shows S1, S2 clear. No murmurs auscultated. ABDOMEN: Soft, nontender, nondistended, obese. No palpable organomegaly is noted. No rebound or guarding demonstrated. BACK: Shows spine grossly in the midline. Normal-appearing cervical lordotic curvature. There is slightly increased thoracic kyphosis, some minor flattening of the lumbar lordotic curvature. Lumbar paraspinous muscles show symmetrical on inspection, on palpation shows some moderate tenderness diffusely throughout the upper, middle and lower distribution of the paraspinous muscles, but without specific trigger points, without radiation of pain. The patient has good rotational motion of the lumbar spine, both laterally as well as extension and flexion without significant difficulty. No tenderness over the spinous processes, sacrum or sacroiliac regions. EXTREMITIES: Lower extremities show deep tendon reflexes 2+ in the patellar and tendo calcaneus tendons. Motor exam is 4 on a scale of 5 with right dorsiflexion, extension, quadriceps and hamstring flexion and 5/5 on the left. Peripheral pulses are 1+ posterior tibial. No peripheral edema is noted bilat erally. Lower extremities are warm and dry. SKIN: Shows warm and dry, good turgor. No edema. No sores, rashes or bruising throughout. Procedure: Procedure: Options discussed with the patient. Patient's chart was reviewed his current medication regimen updated current review of systems updated today as well. We will proceed with a lumbar epidural steroid injection today as the 1st in the series with fluoroscopic guidance. Risks were discussed including but not limited to: Bleeding, infection, possibility of epidural hematoma and subsequent neurological compromise, dural puncture, headaches, spinal cord and/or nerve damage, side effects of steroid medication, and poor results regarding pain control. Patient understands and wished to proceed. Patient will return to the clinic in approximately 2 weeks for follow-up, was counseled as to return appo intment activity level and side effects to be aware of. Medication Injected: Med Injected: Procedure is lumbar epidural steroid injection under local anesthetic using sterile prep and drape at the L5-S1 level using C-arm fluoroscopic guidance in both AP and lateral views medications injected is 120 mg Depo-Medrol +10mL preservative-free normal saline and 2 mL contrast- condition at discharge is stable patient tolerated procedure well had no complications. Condition at Discharge: Condition at Discharge: Condition at discharge stable, patient tolerated the procedure well and had no complications. ROSANNE DAVIES MD July 17, 2020 09:37
== END | disposition home or self-care (01) ==
LOC: PNCL 08:56
PROVIDERS: ATTEND Anesthesiology
DX: M51.16 Intervertebral disc disorders with radiculopathy, lumbar region (principal); M96.1 Postlaminectomy syndrome, not elsewhere classified; Z79.899 Other long term (current) drug therapy; Z91.013 Allergy to seafood
CPT/HCPCS: 62323; J1030; J1040; Q9965

== ENCOUNTER → 2020-08-22 | Outpatient (CLI) | payer OTHER ==
--- NOTE | 2020-08-22 09:14 | PDOC4 ---
PROCEDURE Procedure Patient was consented for lumbar epidural steroid injection. Risks were dis cussed including but not limited to: Bleeding, infection, possibility of epidural hematoma and subsequent neurological compromise, dural puncture, headaches, spinal cord and/or nerve damage, side effects of steroid medication, and poor results regarding pain control. Patient understands and wished to proceed. Procedure is lumbar epidural steroid injection under local anesthetic using sterile prep and drape at the L5-S1 level using C-arm fluoroscopic guidance in both AP and lateral views medications injected is 120 mg Depo-Medrol +10mL preservative-free normal saline and 2 mL contrast- condition at discharge is stable patient tolerated procedure well had no complications. ROSANNE DAVIES MD Aug 22, 2020 09:14
--- NOTE | 2020-08-22 09:14 | PDOC ---
Progress Note - Pain Clinic Date of Service: DOS: DATE: 08/22/20 TIME: 09:11 Diagnosis: Dx: Lumbar radiculopathy with lumbar degenerative disc disease and lumbar postlaminectomy syndrome History or Present Illness: HPI: 44-year-old male returns for follow-up status post lumbar epidural steroid injection x1 last seen 10/17/2020. Patient was very well with about 75% improvement until the last week when he was doing some increased activity moving some boxes and carrying some heavy items which seemed to tweak his low back and now pain is radiating from the low back and the right lower extremity posterior gluteus posterior thigh and calf patient reports is a 7 on scale 10 is worst least and average is a 7 today patient reports worse with standing walking changing positions has frequent awakening from sleep occasionally over the last few days patient reports better with sitting or laying down initially was doing much better doing walking distances household activities work activities travel with greater ease and comfort now the pain is returning again low back right leg patient describes that sharp and aching tight and shooting in the right lower extremity cramping stabbing sometimes tingling and burning can be constant with extended standing or walking. Patient reports no new motor or sensory deficits no bowel or bladder incontinence. Physical Exam: VS: Pressure is 124/86 pulse 78 respirations 18 temperature 90.3 F height is 6 foot 2 inches weight is 229 pounds PE: PHYSICAL EXAMINATION: GENERAL: The patient is awake, alert, oriented, appropriate, very pleasant in demeanor HEENT: Shows normocephalic, atraumatic. Extraocular movements are intact and symmetrical. Oral cavity: Mucous membranes moist and pink. Dentition is int act. NECK: Shows anterior throat supple without palpable lymphadenopathy noted. Swallow reflex symmetrical. CHEST: Shows normal on inspection. Breath sounds are clear bilaterally. HEART: Shows S1, S2 clear. No murmurs auscultated. ABDOMEN: Soft, nontender, nondistended. BACK: Shows spine grossly in the midline. Normal-appearing cervical lordotic curvature. There is slightly increased thoracic kyphosis, some minor flattening of the lumbar lordotic curvature. Lumbar paraspinous muscles show symmetrical on inspection, on palpation shows some moderate tenderness diffusely throughout the upper, middle and lower distribution of the paraspinous muscles without specific trigger points, without radiation of pain. The patient has good rotational motion of the lumbar spine, both laterally as well as extension and flexion without significant difficulty. EXTREMITIES: Lower extremities show deep tendon reflexes 2+ in the patellar and tendo calcaneus tendons. Motor exam is 4 on a scale of 5 with right dorsiflexi on, extension, quadriceps and hamstring flexion and 5/5 on the left. Peripheral pulses are 1+ posterior tibial. No peripheral edema is noted bilaterally. Lower extremities are warm and dry. SKIN: Shows warm and dry, good turgor. No edema. No sores, rashes or bruising throughout. Procedure: Procedure: Options were discussed with the patient. Patient chart was reviewed his current medication regimen updated current review of systems updated today as well. We will proceed with a second in the series lumbar epidural steroid injection today with fluoroscopic guidance. Risks were discussed including but not limited to: Bleeding, infection, possibility of epidural hematoma and subsequent neurological compromise, dural puncture, headaches, spinal cord and/or nerve damage, side effects of steroid medication, and poor results regarding pain control. Patient understands and wished to proceed. Patient will return to the clinic in approximate 2 weeks for follow-up, was counseled as return appointment, activity level, and side effects to be aware of. Medication Injected: Med Injected: Procedure is lumbar epidural steroid injection under local anesthetic using sterile prep and drape at the L5-S1 level using C-arm fluoroscopic guidance in both AP and lateral views medications injected is 120 mg Depo-Medrol +10mL preservative-free normal saline and 2 mL contrast- condition at discharge is stable patient tolerated procedure well had no complications. Condition at Discharge: Condition at Discharge: Condition at discharge stable, patient already procedure well and had no complications. ROSANNE DAVIES MD Aug 22, 2020 09:14
== END | disposition home or self-care (01) ==
LOC: PNCL 08:27
PROVIDERS: ATTEND Anesthesiology
DX: M51.16 Intervertebral disc disorders with radiculopathy, lumbar region (principal); Z79.899 Other long term (current) drug therapy; Z91.013 Allergy to seafood
CPT/HCPCS: 62323; J1030; J1040; Q9965

== ENCOUNTER → 2020-10-13 | Outpatient (CLI) | payer OTHER ==
[~2020-10-13] MED LIST changes: -IOHEXOL 180 MG/ML 10 ML VIAL. ONE; -methylPREDNISolone ACETATE 40 MG/ML VIAL. ONE; -methylPREDNISolone ACETATE 80 MG/ML VIAL. ONE
--- NOTE | 2020-10-13 08:11 | PDOC ---
Progress Note - Pain Clinic Date of Service: DOS: DATE: 10/13/20 TIME: 08:08 Diagnosis: Dx: Lumbar radiculopathy with lumbar degenerative disease and lumbar postlaminectomy syndrome History or Present Illness: HPI: 44-year-old male returns for follow-up status post lumbar epidural steroid injection most recently August 22, 2020. Patient reports he did very well 75% improvement pain returning after about 3 weeks ago he was lifting a couch with a friend and has some significant pain increase at that time in the low back and the right lower extremity into the right foot patient reports it is "on fire" in the low back with a burning sensation patient reports the rest the pain is tingling stabbing aching sharp and dull alternating tight and shooting in the back and the right lower extremity radiating and coming more constant is noticeable with prolonged sitting standing more than 5 to 10 minutes and walking patient reports no motor dysfunction but significant fatigability the right lower extremity with ambulation. Patient reports a 7 on scale 10 at its worst least and average is a 7 today. Patient reports no new motor or sensory deficits no bowel or bladder incontinence. Physical Exam: VS: Blood pressure is 126/83 pulse 91 respirations 18 temperature is 98.1 F height is 6 feet 2 inches weight is 236 pounds PE: PHYSICAL EXAMINATION: GENERAL: The patient is awake, alert, oriented, appropriate, very pleasant in demeanor HEENT: Shows normocephalic, atraumatic. Extraocular movements are intact and symmetrical. Oral cavity: Mucous membranes moist and pink. Dentition is intact. NECK: Shows anterior throat supple without palpable lymphadenopathy noted. Swallow reflex symmetrical. CHEST: Shows normal on inspection. Breath sounds are clear bilaterally, no rales rhonchi or wheezes auscultated. HEART: Shows S1, S2 clear. No murmurs auscultated. ABDOMEN: Soft, nontender, nondistended. No palpable organomegaly is noted. BACK: Shows spine grossly in the midline. Normal-appearing cervical lordotic curvature. There is slightly increased thoracic kyphosis, some minor flattening of the lumbar lordotic curvature. Well-healed midline surgical scar noted. Lumbar paraspinous muscles show symmetrical on inspection, on palpation shows some moderate tenderness diffusely throughout the upper, middle and lower distribution of the paraspinous muscles without specific trigger points, without radiation of pain. The patient has good rotational motion of the lumbar spine, both laterally as well as extension and flexion without significant difficulty. EXTREMITIES: Lower extremities show deep tendon reflexes 2+ in the patellar and tendo calcaneus tendons. Motor exam is 4 on a scale of 5 with right dorsiflexion, extension, quadriceps and hamstring flexion and 5/5 on the left. Peripheral pulses are 1 posterior tibial. No peripheral edema is noted bilaterally. Lower extremities are warm and dry. SKIN: Shows warm and dry, good turgor. No edema. No sores, rashes or bruising throughout. Procedure: Procedure: Options were discussed with patient. Patient's old chart reviewed his current medication regimen updated current review of systems updated today as well. We will preauthorize patient for a lumbar epidural steroid injection as he did very well after the last injection about 75% improvement pain returning down the right lower extremity radicular fashion L5-S1 dermatomal distribution. Patient will continue with stretching strength exercises also recommended naproxen [id number] twice daily in addition with the tramadol and EpiPen he is currently taking. Patient will try this will have him return in approximately 1 week for lumbar epidural steroid injection translaminar approach L5-S1 level with fluoroscopic guidance at that time. Medication Injected: Med Injected: None Condition at Discharge: Condition at Discharge: Condition at discharge is stable. ROSANNE DAVIES MD Oct 13, 2020 08:11
== END | disposition home or self-care (01) ==
LOC: PNCL 07:44
PROVIDERS: ATTEND Anesthesiology
DX: M51.16 Intervertebral disc disorders with radiculopathy, lumbar region (principal); M96.1 Postlaminectomy syndrome, not elsewhere classified; Z79.899 Other long term (current) drug therapy; Z91.013 Allergy to seafood; Z88.8 Allergy status to other drugs, medicaments and biological substances
CPT/HCPCS: 99212; G0463

== ENCOUNTER → 2020-10-23 | Outpatient (CLI) | payer OTHER ==
[~2020-10-23] MED LIST changes: +IBUP-1027 PO; +IOHEXOL 180 MG/ML 10 ML VIAL. ONE; +LIDO700A21 TP; +methylPREDNISolone ACETATE 80 MG/ML VIAL. ONE
--- NOTE | 2020-10-23 08:52 | PDOC ---
Progress Note - Pain Clinic Date of Service: DOS: DATE: 10/23/20 TIME: 08:49 Diagnosis: Dx: Lumbar radiculopathy, degenerative disease and lumbar postlaminectomy syndrome History or Present Illness: HPI: 45-year-old male returns for follow-up status post lumbar epidural steroid injection x2 patient did very well with pain in the low back and right lower extremity most recent injection was August 22, 2020. Patient reports he had approximately 75% improvement after the injection. Patient reports pain beginning to return down the low back and right lower extremity some on the left as well though usually just on the right side but now new finding of left-sided pain as well in both of the feet with numbness and tingling patient reports pain is an 8 on scale 10 is worse over the past week 8 on average 7 at its least is an 8 today patient reports is aching sharp tight shooting cramping stabbing tingling radiating constant burning in the feet can be severe and unbearable with activity better with sitting or laying down but wakes him sleep about every 4-5 hours. Patient reports no bowel or bladder incontinence. Patient still taking gabapentin as well as ibuprofen which do decrease the pain but only moderately. Patient reports no new motor or sensory deficits or bowel or bladder incontinence. Physical Exam: VS: Blood pressure is 156/106 pulse 93 respirations 18 temperature 98.6 F weight is 236 pounds PE: PHYSICAL EXAMINATION: GENERAL: The patient is awake, alert, oriented, appropriate, very pleasant in demeanor HEENT: Shows normocephalic, atraumatic. Extraocular movements are intact and symmetrical. Oral cavity: Mucous membranes moist and pink. NECK: Shows anterior throat supple without palpable lymphadenopathy noted. Swallow reflex symmetrical. CHEST: Shows normal on inspection. Breath sounds are clear bilaterally, no rales or rhonchi. HEART: Shows S1, S2 clear. No murmurs auscultated. ABDOMEN: Soft, nontender, nondistended. No palpable organomegaly is noted. BACK: Shows spine grossly in the midline. Normal-appearing cervical lordotic curvature. There is slightly increased thoracic kyphosis, some minor flattening of the lumbar lordotic curvature. Lumbar paraspinous muscles show symmetrical on inspection, on palpation shows some moderate tenderness diffusely throughout the upper, middle and lower distribution of the paraspinous muscles, but without specific trigger points, without radiation of pain. The patient has good rotational motion of the lumbar spine, both laterally as well as extension and flexion without significant difficulty. No tenderness over the spinous processes, sacrum or sacroiliac regions. EXTREMITIES: Lower extremities show deep tendon reflexes 2+ in the patellar and tendo calcaneus tendons. Motor exam is 4 on a scale of 5 with right dorsiflexion, extension, quadriceps and hamstring flexion and 5/5 on the left. Peripheral pulses are 1+ posterior tibial. No peripheral edema is noted bilaterally. Lower extremities are warm and dry. SKIN: Shows warm and dry, good turgor. No edema. No sores, rashes or bruising throughout. Procedure: Procedure: Options discussed with patient. Patient's old chart was reviewed his current medication regimen updated current review of systems updated today as well. We will proceed with a third lumbar epidural steroid injection today with fluoroscopic guidance. Risks were discussed including but not limited to: Bleeding, infection, possibility of epidural hematoma and subsequent neurolog ical compromise, dural puncture, headaches, spinal cord and/or nerve damage, side effects of steroid medication, and poor results regarding pain control. Patient understands and wished to proceed. Patient will return to the clinic in approximate 2 weeks for follow-up, was counseled as return appointment activity level and side effects to be aware of. Medication Injected: Med Injected: Procedure is lumbar epidural steroid injection under local anesthetic using sterile prep and drape at the L5-S1 level using C-arm fluoroscopic guidance in both AP and lateral views medications injected is 120 mg Depo-Medrol +10mL preservative-free normal saline and 2 mL contrast- condition at discharge is stable patient tolerated procedure well had no complications. Condition at Discharge: Condition at Discharge: Condition at discharge is stable, patient tolerated the procedure well and had no complications. ROSANNE DAVIES MD Oct 23, 2020 08:52
--- NOTE | 2020-10-23 08:53 | PDOC4 ---
Procedure Note: ICD 10 Code: ICD 10 Code: M54.17 M 96.1 M51.36 Procedure Note: Patient was consented for lumbar epidural steroid injection with fluoroscopic guidance. Risks were discussed including but not limited to: Bleeding, infection, possibility of epidural hematoma and subsequent neurological compromise, dural puncture, headaches, spinal cord and/or nerve damage, side effects of steroid medication, and poor results regarding pain control. Patient understands and wished to proceed. Procedure is lumbar epidural steroid injection under local anesthetic using ster ile prep and drape at the L5-S1 level using C-arm fluoroscopic guidance in both AP and lateral views medications injected is 120 mg Depo-Medrol +10mL preservative-free normal saline and 2 mL contrast- condition at discharge is stable patient tolerated procedure well had no complications. ROSANNE DAVIES MD Oct 23, 2020 08:53
== END ==
LOC: PNCL 08:07
PROVIDERS: ATTEND Anesthesiology
DX: M51.17 Intervertebral disc disorders with radiculopathy, lumbosacral region (principal); M96.1 Postlaminectomy syndrome, not elsewhere classified; Y83.8 Other surgical procedures as the cause of abnormal reaction of the patient, or of later complication, without mention of misadventure at the time of the procedure
CPT/HCPCS: 62323; J1040; Q9965

== ENCOUNTER → 2021-01-21 | Outpatient (CLI) | payer OTHER ==
[~2021-01-21] MED LIST changes: -IOHEXOL 180 MG/ML 10 ML VIAL. ONE; -methylPREDNISolone ACETATE 80 MG/ML VIAL. ONE
--- NOTE | 2021-01-21 09:49 | PDOC ---
Progress Note - Pain Clinic Date of Service: DOS: DATE: 01/21/21 TIME: 09:46 Diagnosis: Dx: Lumbar radiculopathy with lumbar degenerative disease lumbar postlaminectomy syndrome History or Present Illness: HPI: 45-year-old male returns for follow-up status post lumbar epidural steroid injections most recently October 2020 patient reports he did very well about 70% improvement for about 3 months following the injection patient reports pain returning now over the past few weeks in the low back and radiating to the right lower extremity posterior gluteus posterior thigh posterior calf into the right foot as well patient reports is worse with walking standing changing positions rated as a 7 on scale 10 is worst least and average and is a 7 today patient reports that sharp and tight in the back shooting the leg tingling burning in the leg stabbing in the back as well as constant with activity worse with walking standing worse with getting up from a chair initially was doing much better with doing work activities household activities try with greater ease and comfort walking better as beginning awakening from sleep once medically 5 to 6 hours but not every night. Patient reports no bowel or bladder incontinence no loss of motor function with significant fatigability of the right lower extremity with ambulation and standing even with prolonged sitting patient is trying to stay off of his right side with sitting as well. Physical Exam: VS: Blood pressure 144/98 pulse 70 respirations 18 temperature 98.2 F height is 6 feet 2 inches weight is 237 pounds PE: PHYSICAL EXAMINATION: GENERAL: The patient is awake, alert, oriented, appropriate, very pleasant in demeanor HEENT: Shows normocephalic, atraumatic. Extraocular movements are intact and symmetrical. Oral cavity: Mucous membranes moist and pink. Dentition is intact. NECK: Shows anterior throat supple without palpable lymphadenopathy noted. Swallow reflex symmetrical. CHEST: Shows normal on inspection. Breath sounds are clear bilaterally, distant but no rales or. HEART: Shows S1, S2 clear. No murmurs auscultated. ABDOMEN: Soft, nontender, nondistended, obese. No palpable organomegaly is noted. BACK: Shows spine grossly in the midline. Normal-appearing cervical lordotic curvature. There is slightly increased thoracic kyphosis, some minor flattening of the lumbar lordotic curvature. Lumbar paraspinous muscles show symmetrical on inspection, on palpation shows some moderate tenderness diffusely throughout the upper, middle and lower distribution of the paraspinous muscles without specific trigger points, without radiation of pain. The patient has good rotational motion of the lumbar spine, both laterally as well as extension and flexion without significant difficulty. No tenderness over the spinous processes, sacrum or sacroiliac regions. EXTREMITIES: Lower extremities show deep tendon reflexes 2+ in the patellar and tendo calcaneus tendons. Motor exam is 4 on a scale of 5 with right dorsiflexion, extension, quadriceps and hamstring flexion and 5/5 on the left. Peripheral pulses are 1 posterior tibial. No peripheral edema is noted bilaterally. Lower extremities are warm and dry. SKIN: Shows warm and dry, good turgor. No edema. No sores, rashes or bruising throughout. Procedure: Procedure: Options discussed with patient. Patient chart was reviewed his current medi cation regimen updated current review of systems updated today as well. We will preauthorize patient for lumbar epidural steroid injection as he has clinical radiculopathy in right L5-S1 dermatomal distribution. Meantime we will try Medrol Dosepak, patient was given instructions well side effects with the medication. Patient will follow up approximate 1 week as scheduled. Medication Injected: Med Injected: None Condition at Discharge: Condition at Discharge: Condition at discharge is stable. ROSANNE DAVIES MD Jan 21, 2021 09:49
== END | disposition home or self-care (01) ==
LOC: PNCL 09:05
PROVIDERS: ATTEND Anesthesiology
DX: M51.16 Intervertebral disc disorders with radiculopathy, lumbar region (principal); M96.1 Postlaminectomy syndrome, not elsewhere classified; Z79.899 Other long term (current) drug therapy; Z91.013 Allergy to seafood; Z88.8 Allergy status to other drugs, medicaments and biological substances
CPT/HCPCS: 99212; G0463

== ENCOUNTER → 2021-02-10 | Outpatient (CLI) | payer OTHER ==
[~2021-02-10] MED LIST changes: +IOHEXOL 180 MG/ML 10 ML VIAL. ONE; +methylPREDNISolone ACETATE 40 MG/ML VIAL. ONE; +methylPREDNISolone ACETATE 80 MG/ML VIAL. ONE
--- NOTE | 2021-02-10 12:38 | PDOC ---
Progress Note - Pain Clinic Date of Service: DOS: DATE: 02/10/21 TIME: 12:35 Diagnosis: Dx: Lumbar radiculopathy with lumbar degenerative disease lumbar postlaminectomy syndrome History or Present Illness: HPI: 45-year-old male returns for follow-up status post previous office visit patient was pain complaining low back right great left lower extremity posterior gluteus posterior thigh posterior calf also into the foot on the right side, worse with walking and standing better with sitting or laying down but is getting worse over the past 3 months or so patient reports pain is an eight on scale 10 is worse over the past week seven on average six its least is a seven today patient drives aching sharp in the back tight in the back tingling burning the leg stabbing and shooting in the leg and constant also tight in the foot patient reports its worse with walking and standing changing positions also awaken from sleep about 2 to 3 hours every night. Patient reports no bowel or bladder incontinence but significant fatigability of the right lower extremity compared to the left but without actual full motor loss. Physical Exam: VS: Blood pressure is 118/85 pulse 90 respirations 18 temperature 98.3 F weight is 234 pounds PE: PHYSICAL EXAMINATION: GENERAL: The patient is awake, alert, oriented, appropriate, very pleasant in demeanor HEENT: Shows normocephalic, atraumatic. Extraocular movements are intact and symmetrical. Oral cavity: Mucous membranes moist and pink. Dentition is intact. NECK: Shows anterior throat supple without palpable lymphadenopathy noted. Swallow reflex symmetrical. CHEST: Shows normal on inspection. Breath sounds are clear bilaterally, distant but no rales or rhonchi. HEART: Shows S1, S2 clear. No murmurs auscultated. ABDOMEN: Soft, nontender, nondistended. No palpable organomegaly is noted. BACK: Shows spine grossly in the midline. Normal-appearing cervical lordotic curvature. There is slightly increased thoracic kyphosis, some flattening of the lumbar lordotic curvature, with well-healed surgical scar. Lumbar paraspinous muscles show symmetrical on inspection, on palpation shows some moderate tenderness diffusely throughout the upper, middle and lower distribution of the paraspinous muscles, but without specific trigger points, without radiation of pain. The patient has good rotational motion of the lumbar spine, both laterally as well as extension and flexion without significant difficulty. No tenderness over the spinous processes, sacrum or sacroiliac regions. EXTREMITIES: Lower extremities show deep tendon reflexes two in the patellar and tendo calcaneus tendons. Motor exam is four on a scale of 5 with right dorsiflexion, extension, quadriceps and hamstring flexion and five/5 on the left. Peripheral pulses are one posterior tibial. No peripheral edema is noted bilaterally. Lower extremities are warm and dry to touch, equal in color and appearance. SKIN: Shows warm and dry, good turgor. No edema. No sores, rashes or bruising throughout. Procedure: Procedure: Options discussed with the patient. Patient's old chart was reviewed his cu rrent medication regimen updated current review of systems updated today as well. We will proceed with a lumbar epidural steroid injection today with fluoroscopic guidance. Risks were discussed including but not limited to: Bleeding, infection, possibility of epidural hematoma and subsequent neurological compromise, dural puncture, headaches, spinal cord and/or nerve damage, side effects of steroid medication, and poor results regarding pain control. Patient understands and wished to proceed. Patient will return to the clinic in approximate 2 weeks for follow-up, was counseled as to her appointment, activity level, and side effect to be aware of. Medication Injected: Med Injected: Procedure is lumbar epidural steroid injection under local anesthetic using sterile prep and drape at the L5-S1 level using C-arm fluoroscopic guidance in both AP and lateral views medications injected is 120 mg Depo-Medrol +10mL preservative-free normal saline and 2 mL contrast- condition at discharge is stable patient tolerated procedure well had no complications. Condition at Discharge: Condition at Discharge: Condition at discharge stable, patient tolerated the procedure well and had no complications. ROSANNE DAVIES MD Feb 10, 2021 12:38
--- NOTE | 2021-02-10 12:38 | PDOC4 ---
Procedure Note: ICD 10 Code: ICD 10 Code: M54.17 M51.87 M 96.1 Procedure Note: Patient was consented for lumbar epidural steroid injection with fluoroscopic guidance. Risks were discussed including but not limited to: Bleeding, infection, possibility of epidural hematoma and subsequent neurological compromise, dural puncture, headaches, spinal cord and/or nerve damage, side effects of steroid medication, and poor results regarding pain control. Patient understands and wished to proceed. Procedure is lumbar epidural steroid injection under local anesthetic using ster ile prep and drape at the L5-S1 level using C-arm fluoroscopic guidance in both AP and lateral views medications injected is 120 mg Depo-Medrol +10mL preservative-free normal saline and 2 mL contrast- condition at discharge is stable patient tolerated procedure well had no complications. ROSANNE DAVIES MD Feb 10, 2021 12:38
== END | disposition home or self-care (01) ==
LOC: PNCL 11:26
PROVIDERS: ATTEND Anesthesiology
DX: M51.16 Intervertebral disc disorders with radiculopathy, lumbar region (principal); M96.1 Postlaminectomy syndrome, not elsewhere classified; Z79.899 Other long term (current) drug therapy; Z91.013 Allergy to seafood
CPT/HCPCS: 62323; J1030; J1040; Q9965

== ENCOUNTER → 2021-02-24 | Outpatient (CLI) | payer OTHER ==
[~2021-02-24] MED LIST changes: +BUPIVACAINE MPF 0.25% 10 ML VIAL. ONE; -IOHEXOL 180 MG/ML 10 ML VIAL. ONE; -methylPREDNISolone ACETATE 80 MG/ML VIAL. ONE
--- NOTE | 2021-02-24 10:24 | PDOC ---
Progress Note - Pain Clinic Date of Service: DOS: DATE: 02/24/21 TIME: 10:20 Diagnosis: Dx: Lumbar radiculopathy with lumbar degenerative disease and lumbar postlaminectomy syndrome Myofascial pain History or Present Illness: HPI: 45-year-old male returns for follow-up status post lumbar epidural steroid injection patient reports about 70% improvement after the injection in the low back and right lower extremity. Patient chief complaint however today is pain in the base the neck and shoulder on the left side radiating into the posterior shoulder as well as the base the neck and upper arm on the left side also the upper mid back patient reports is worse with activity reaching weightbearing with the left upper extremity has difficulty sleeping on the left side secondary to the pain there patient reports is a 6 on scale 10 at all times average least and is worst is a 6 today. Patient reports burning and cramping stabbing tight and sharp can be constant in the base the neck and shoulder as well is the upper back. Patient reports he has had physical therapy as well as massage which does help but only temporarily also applying heat to the area and cold intermittently helps as well. Patient reports no bowel or bladder incontinence no motor deficits. Physical Exam: VS: Blood pressure is 121/80 pulse 68 respirations 18 temperature is 98.4 F weight is 237 pounds PE: PHYSICAL EXAMINATION: GENERAL: The patient is awake, alert, oriented, appropriate, very pleasant in demeanor HEENT: Shows normocephalic, atraumatic. Extraocular movements are intact and symmetrical. Oral cavity: Mucous membranes moist and pink. Dentition is intact. NECK: Shows anterior throat supple without palpable lymphadenopathy noted. Swallow reflex symmetrical. CHEST: Shows normal on inspection. Breath sounds are clear bilaterally, distant but no rales or rhonchi. HEART: Shows S1, S2 clear. No murmurs auscultated. ABDOMEN: Soft, nontender, nondistended. No palpable organomegaly is noted. BACK: Shows spine grossly in the midline. Normal-appearing cervical lordotic curvature. Cervical paraspinous muscles show symmetrical with inspection, on palpation some moderate tenderness diffusely in the upper middle lower decrease the paraspinous muscles also very firm ropelike musculature in the middle to lower distribution of the cervical paraspinous posture this is true into the superior medial trapezius with very firm ropelike musculature consistent with trigger point areas of muscle as well is in the suprascapular region and the rhomboid muscle in the left side only. Right side is nontender, without trigger points. There is slightly increased thoracic kyphosis, some flattening of the lumbar lordotic curvature. Lumbar paraspinous muscles show symmetrical on ins pection, on palpation shows some moderate tenderness diffusely throughout the upper, middle and lower distribution of the paraspinous muscles, but without specific trigger points, without radiation of pain. The patient has good rotational motion of the lumbar spine, both laterally as well as extension and flexion without significant difficulty. No tenderness over the spinous proc esses, sacrum or sacroiliac regions. EXTREMITIES: Lower extremities show deep tendon reflexes 2+ in the patellar and tendo calcaneus tendons. Motor exam is 4 on a scale of 5 with right dorsiflexion, extension, quadriceps and hamstring flexion and 5/5 on the left. Peripheral pulses are 1+ posterior tibial. No peripheral edema is noted bilaterally. Lower extremities are warm and dry to touch, equal in color and appearance. Upper extremity show deep tendon reflexes 2+ in the bicep triceps tendons, motor exam strong with field sales consultant strength rated 5 out of 5 as is bicep tricep flexion. Shoulder shrug is strong and intact without loss of strength on resistance bilaterally. SKIN: Shows warm and dry, good turgor. No edema. No sores, rashes or bruising throughout. Procedure: Procedure: Options were discussed with the patient. Patient chart was reviewed his current medication regimen updated current review of systems updated today as well. We will proceed with trigger point injections of the left cervical paraspinous posterior left trapezius muscle, suprascapular musculature, left rhomboid musculature and left thoracic paraspinous musculature. Risk discussed including but not limited to bleeding infection possibility of intravascular injection sequelae spread local anesthetic numbness pneumothorax side effects of steroid medication and poor results regarding pain control. Patient understands wished to proceed. Patient will return to clinic in approximately 4 weeks for follow- up, was counseled as to return appointment, activity level, and side effect to be aware of. Medication Injected: Med Injected: Patient seen position under sterile prep and drape triggerpoints were identified in the cervical paraspinous muscular as well as the superior trapezius musculature rhomboid muscular suprascapular muscular and thoracic paraspinous musculature using 25-gauge needle after negative aspiration each injection site total of 10 cc 0.25% bupivacaine was injected as well as total of 40 mg Depo- Medrol. Patient tolerated procedure well and had no complications. Condition at Discharge: Condition at Discharge: Condition at discharge is stable, patient tolerated procedure well and had no complications. ROSANNE DAVIES MD Feb 24, 2021 10:24
--- NOTE | 2021-02-24 10:25 | PDOC4 ---
Procedure Note: ICD 10 Code: ICD 10 Code: M60.89 Procedure Note: Patient was consented for trigger point injections left cervical paraspinous posterior, left trapezius muscular, left suprascapular muscular, left rhomboid muscular, left thoracic paraspinous musculature. Risk were discussed including not limited to bleeding infection possibility of intravascular injection sequelae spread local anesthetic and numbness pneumothorax side effects of steroid medication and poor results regarding pain control. Patient understands wished to proceed. Patient seen position under sterile prep and drape triggerpoints were identified in the cervical paraspinous muscular as well as the superior trapezius m usculature rhomboid muscular suprascapular muscular and thoracic paraspinous musculature using 25-gauge needle after negative aspiration each injection site total of 10 cc 0.25% bupivacaine was injected as well as total of 40 mg Depo- Medrol. Patient tolerated procedure well and had no complications. ROSANNE DAVIES MD Feb 24, 2021 10:25
== END | disposition home or self-care (01) ==
LOC: PNCL 09:33
PROVIDERS: ATTEND Anesthesiology
DX: M79.18 Myalgia, other site (principal); M51.16 Intervertebral disc disorders with radiculopathy, lumbar region; M96.1 Postlaminectomy syndrome, not elsewhere classified; Z79.899 Other long term (current) drug therapy; Z91.013 Allergy to seafood
CPT/HCPCS: 20553; J1030; J3490

== ENCOUNTER → 2021-07-30 | Outpatient (CLI) | payer OTHER ==
[~2021-07-30] MED LIST changes: -BUPIVACAINE MPF 0.25% 10 ML VIAL. ONE; +DEXAMETHASONE PRES.FREE 10 MG/ML VIAL. ONE; +IOHEXOL 180 MG/ML 10 ML VIAL. ONE; -methylPREDNISolone ACETATE 40 MG/ML VIAL. ONE
--- NOTE | 2021-07-30 15:01 | PDOC ---
Progress Note - Pain Clinic Date of Service: DOS: DATE: 07/30/21 TIME: 14:57 Diagnosis: Dx: Lumbar radiculopathy with lumbar degenerative disc disease lumbar postlaminectomy syndrome Myofascial pain History or Present Illness: HPI: 45-year-old male returns for follow-up status post trigger point injections in the left cervical paraspinous posterior thoracic paraspinous musculature and supraclavicular region last on February 24, 2021 patient reports he did very well with this with about 60 to 70% improvement for about 3 months or so his main complaint today however is pain in the low back and right lower extremity rating the posterior gluteus posterior thigh posterior calf worse with walking standing changing positions patient reports its a 7 on scale 10 is worst an average and a 6 at its least and is a 6 today. Patient reports sharp and tight shooting tingling burning stabbing can be constant in the low back and the right leg as well patient reports no bowel or bladder incontinence no loss of motor function but significant fatigability initially after the trigger point injections really much better with increased activity sleeping better at night but now pain is changed and is now in the low back and right lower extremity as noted. Patient reports no loss of motor function but significant fatigability of the right lower extremity with ambulation. Physical Exam: VS: Blood pressure is 115/74 pulse 75 respirations 18 temperature is 90.3 F height is 6 feet 2 inches weight is 234 pounds. PE: PHYSICAL EXAMINATION: GENERAL: The patient is awake, alert, oriented, appropriate, very pleasant in demeanor HEENT: Shows normocephalic, atraumatic. Extraocular movements are intact and symmetrical. Oral cavity: Mucous membranes moist and pink. Dentition is intact. NECK: Shows anterior throat supple without palpable lymphadenopathy noted. Swallow reflex symmetrical. CHEST: Shows normal on inspection. Breath sounds are clear bilaterally, no rales rhonchi or wheezes auscultated. HEART: Shows S1, S2 clear. No murmurs auscultated. ABDOMEN: Soft, nontender, nondistended. No palpable organomegaly is noted. BACK: Shows spine grossly in the midline. Normal-appearing cervical lordotic curvature. There is slightly increased thoracic kyphosis, some mild flattening of the lumbar lordotic curvature. Lumbar paraspinous muscles show symmetrical on inspection, on palpation shows some moderate tenderness diffusely throughout the upper, middle and lower distribution of the paraspinous muscles, but without specific trigger points, without radiation of pain. The patient has good rotational motion of the lumbar spine, both laterally as well as extension and flexion without significant difficulty. No tenderness over the spinous processes, sacrum or sacroiliac regions. EXTREMITIES: Lower extremities show deep tendon reflexes 2+ in the patellar and tendo calcaneus tendons. Motor exam is 4 on a scale of 5 with right dorsiflexion, extension, quadriceps and hamstring flexion and 5/5 on the left. Peripheral pulses are 1+ posterior tibial. No peripheral edema is noted bilaterally. Lower extremities are warm and dry to touch, equal in color and appearance. SKIN: Shows warm and dry, good turgor. No edema. No sores, rashes or bruising throughout. Procedure: Procedure: Discussed with the patient. Patient's chart was reviewed his his current medication regimen updated current review of systems updated today as well. We will proceed with a lumbar epidural steroid injection today with fluoroscopic guidance. Risks were discussed including but not limited to: Bleeding, infection, possibility of epidural hematoma and subsequent neurological compromise, dural puncture, headaches, spinal cord and/or nerve damage, side effects of steroid medication, and poor results regarding pain control. Patient understands and wished to proceed. Patient will return to clinic in approximately 4 weeks for follow-up, was counseled as to return appointment, activity level, and side effect to be aware of. Medication Injected: Med Injected: Procedure is lumbar epidural steroid injection under local anesthetic using sterile prep and drape at the L5-S1 level using C-arm fluoroscopic guidance in both AP and lateral views medications injected is 20 mg dexamethasone +10mL preservative-free normal saline and 2 mL contrast- condition at discharge is s table patient tolerated procedure well had no complications. Condition at Discharge: Condition at Discharge: Condition at discharge stable, patient Maite the procedure well and had no complications. ROSANNE DAVIES MD July 30, 2021 15:00
--- NOTE | 2021-07-30 15:01 | PDOC4 ---
Procedure Note: ICD 10 Code: ICD 10 Code: M54.16 M51.36 M96.1 Procedure Note: Patient was consented for lumbar epidural steroid injection with fluoroscopic guidance. Risks were discussed including but not limited to: Bleeding, infection, possibility of epidural hematoma and subsequent neurological compromise, dural puncture, headaches, spinal cord and/or nerve damage, side effects of steroid medication, and poor results regarding pain control. Patient understands and wished to proceed. Procedure is lumbar epidural steroid injection under local anesthetic using sterile prep and drape at the L5-S1 level using C-arm fluoroscopic guidance in both AP and lateral views medications injected is 20 mg dexamethasone +10mL preservative-free normal saline and 2 mL contrast- condition at discharge is stable patient tolerated procedure well had no complications. ROSANNE DAVIES MD July 30, 2021 15:01
== END | disposition home or self-care (01) ==
LOC: PNCL 13:45
PROVIDERS: ATTEND Anesthesiology
DX: M51.16 Intervertebral disc disorders with radiculopathy, lumbar region (principal); M96.1 Postlaminectomy syndrome, not elsewhere classified; M79.18 Myalgia, other site; Z79.899 Other long term (current) drug therapy; Z91.013 Allergy to seafood; Z88.8 Allergy status to other drugs, medicaments and biological substances
CPT/HCPCS: 62323; J1100; Q9965